=== PATIENT | female | born 1985 | race Caucasian/White ===

== ENCOUNTER 2019-05-08 10:40 | Observation (INO) ==
--- NOTE | 2019-05-08 11:45 | XRay Report ---
XR chest 1V portable CLINICAL HISTORY: Hypertension. COMPARISON STUDY: No previous studies for comparison. FINDINGS: Lung volumes are normal. There is no pneumothorax or pleural effusion. There is no evidence for pulmonary edema or pneumonia. Note is made of an apparent abnormal left lower thoracic paraspina l contour abnormality. Cardiac size is normal. There is a possible 7 mm left lower lung nodule. IMPRESSION: 1. Apparent abnormal left lower thoracic paraspinal chondral abnormality. This is of uncertain signif icance. A CT of the chest with contrast is recommended for further evaluation. 2. Possible 8 mm left lower lung nodule which can be assessed on chest CT. ACT 112: Negative or not required by law. Electronically signed by: Latrell Gorman M.D. 05/08/2019 11:43 AM
[2019-05-08 11:50] LABS: Basophils # (auto) 0.05 K/uL (0-0.2); Basophils % (auto) 0.4 %; Eosinophils # (auto) 0.39 K/uL (0-0.5); Eosinophils % (auto) 2.9 %; Hematocrit (blood only) 47.8 % (37-47); Hemoglobin 16.6 g/dL (12.0-16.0); Immature Granulocytes # (auto) 0.04 K/uL (0.00-0.02); Immature Granulocytes % (auto) 0.3 %; Lymphocytes # (auto) 2.13 K/uL (1.2-3.4); Lymphocytes % (auto) 15.8 %; Mean Corpuscular Hemoglobin 32.1 pg (25-34); Mean Corpuscular Hgb Conc 34.7 g/dL (32-36); Mean Corpuscular Volume 92.5 fL (80-100); Mean Platelet Volume 9.8 fL (7.4-10.4); Monocytes # (auto) 0.65 K/uL (0.11-0.59); Monocytes % (auto) 4.8 %; Neutrophils # (auto) 10.25 K/uL (1.4-6.5); Neutrophils % (auto) 75.8 %; Platelet Count 287 K/uL (130-400); RDW Standard Deviation 43.3 fL (36.4-46.3); Red Blood Count 5.17 M/uL (4.2-5.4); White Blood Count 13.51 K/uL (4.8-10.8)
[2019-05-08 11:54] LABS: Appearance Urine Cloudy (Clear); Bacteria Urine Automated Negative (Negative); Bilirubin Urine Negative (Negative); Blood Urine 3+ (Negative); Color Urine Orange; Epithelial Cell Urine Auto >30 /lpf (0-5); Glucose Urine UA Negative (Negative); Ketones Urine Negative (Negative); Leukocyte Esterase Urine 1+ (Negative); Nitrite Urine Negative (Negative); Protein Urine 3+ (Negative); RBC Urine Automated >30 /hpf (0-4); Specific Gravity Urine 1.017 (1.000-1.030); Urobilinogen Urine Negative (Negative); pH Urine 6.5 (4.5-7.5)
[2019-05-08 12:09] LABS: Alanine Aminotransferase 36 U/L (12-78); Albumin Level 3.8 gm/dl (3.4-5.0); Aspartate Aminotransferase 20 U/L (15-37); BUN Creatinine Ratio 13.9 (10-20); Blood Urea Nitrogen 13 mg/dl (7-18); Calcium 9.1 mg/dl (8.5-10.1); Carbon Dioxide 27 mmol/L (21-32); Chloride 103 mmol/L (98-107); Creatinine Clr Calc Pharmacy 78.3 ml/min; Est GFR (African American) 96.7; Est GFR (Non-African American) 83.4; Glucose 95 mg/dl (70-99); Lipase 104 U/L (73-393); Potassium 3.7 mmol/L (3.5-5.1); Sodium 137 mmol/L (136-145)
[2019-05-08 12:15] LABS: Albumin Globulin Ratio 0.9 (0.9-2); Alkaline Phosphatase 110 U/L (45-117); Bilirubin,Total 0.4 mg/dl (0.2-1); Globulin 4.3 gm/dl (2.5-4.0); Total Protein 8.1 gm/dl (6.4-8.2); Troponin I < 0.015 ng/ml (0-0.045)
[2019-05-08] MEDS ORDERED: LABETALOL HCL IV 5 MG/ML 20ML IV STA (12:51)
--- NOTE | 2019-05-08 12:59 | Ultrasound Report ---
RENAL ULTRASOUND CLINICAL HISTORY: Right flank pain. COMPARISON STUDY: None. TECHNIQUE: Sonography of the kidneys and the urinary bladder was performed. FINDINGS: Right kidney measures 10.5 cm in maximal dimension and the left measures 11 cm. There is no hydronephrosis. The renal pyramids are echogenic. Probable bilateral renal calculi are noted. These measure up to 8 mm. Renal echogenicity, size and cortical thickness are normal. Neither ureteral jet was identified. Note was made of a 5.8 x 4 x 4.1 cm septated cystic right ovarian lesion. There is co edwardo flow within the right ovary. IMPRESSION: 1. No hydronephrosis. 2. Probable bilateral nephrolithiasis. 2. 5.8 cm septated cystic right ovarian lesion. This is likely benign. However, a follow-up pelvic ul trasound in 6 weeks to ensure resolution is recommended. ACT 112: Negative or not required by law. Electronically signed by: Latrell Gorman M.D. 05/08/2019 12:58 PM
[2019-05-08] MEDS ORDERED: IOVERSOL 100ml IV PRN (13:37)
--- NOTE | 2019-05-08 13:52 | CT Scan Report ---
CT thoracic spine wo con CT DOSE: 488.64 mGy.cm HISTORY: Mass ? spine mass TECHNIQUE: Multiaxial CT images of the thoracic spine were performed and reformatted in the sagittal and coronal plane without the use of contrast. A dose lowering technique was utilized adhering to th e principles of ALARA. COMPARISON: Chest 05/08/2019 FINDINGS: Vertebral body stature is normal. Disc spaces are well preserved. Posterior elements are intact throughout. The left paraspinal density seen on routine imaging appear to represent a hiatal hernia. IMPRESSION: 1. Negative thoracic spine. 2. Chest film findings in the left paraspinal region appears to Represent a fixed hiatal hernia. ACT 112: Negative or not required by law. The above report was generated using voice recognition software. It may contain grammatical, syntax or spelling errors. Electronically signed by: Kareem Collazo M.D. 05/08/2019 1:51 PM
--- NOTE | 2019-05-08 14:00 | CT Scan Report ---
CT OF THE CHEST WITH IV CONTRAST CLINICAL HISTORY: Abnormal chest radiograph. Hypertension. COMPARISON STUDY: Chest radiograph performed earlier today. TECHNIQUE: Following IV administration of 94 mL of Optiray-320, helical axial images of the chest we re obtained. Sagittal and coronal reconstructions were viewed as well as maximal intensity projectio ns on an independent 3-D workstation. Automated exposure control was utilized for the study. A dose lowering technique was utilized adhering to the principles of ALARA. FINDINGS: No enlarged axillary, mediastinal or hilar lymph nodes are present. The size of the heart is normal. There is no pericardial effusion. Caliber of the thoracic aorta is normal. A small to mode rate hiatal hernia is noted. This accounts for the abnormal mediastinal contour on chest radiograph. Central airways are patent. There is no consolidation to suggest pneumonia. A 4 mm subpleural lingula r nodule on image 179 of 316 is likely benign. The central airways are patent. There is no pneumothor ax or pleural effusion. There are no suspicious osseous lesions. Imaged portions of the upper abdomen demonstrate marked fatty infiltration of the liver. Extensive bilateral renal calculi are noted, inc luding a 7 mm left renal pelvis calculus. There is no hydronephrosis. IMPRESSION: 1. Small to moderate size hiatal hernia which accounts for the mediastinal contour abnormality on chip st radiograph. 2. No acute findings within the chest. 3. Extensive bilateral nephrolithiasis. Several left renal pelvis calculi that measure up to 7 mm. No hydronephrosis. 4. Marked fatty infiltration of the liver. ACT 112: Negative or not required by law. Electronically signed by: Latrell Gorman M.D. 05/08/2019 1:59 PM
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
[2019-05-08] MEDS ORDERED: lisinopriL 10 MG TAB PO STA (14:21)
[2019-05-08] MEDS ORDERED: AMLODIPINE BESYLATE 5 MG TAB PO STA (14:21)
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
[2019-05-08] MEDS ORDERED: cefTRIAXone SODIUM 1,000 MG/50 ML BAG IV STA (15:09)
[2019-05-08] MEDS ORDERED: ACETAMINOPHEN 325 MG TAB PO PRN (16:01)
--- NOTE | 2019-05-08 23:46 | Electrocardiogram Report ---
Test Reason : Blood Pressure : / mmHG Vent. Rate : 071 BPM Atrial Rate : 071 BPM P-R Int : 146 ms QRS Dur : 080 ms QT Int : 464 ms P-R-T Axes : 050 057 080 degrees QTc Int : 505 ms Normal sinus rhythm T wave abnormality, consider anterior ischemia Prolonged QT Abnormal ECG When compared with ECG of 08-MAY-2019 11:11, T wave inversion now evident in Anterior leads Confirmed by Sherif Hill ([id number]) on 05/08/2019 11:46:21 PM Referred By: NO PCP Confirmed By:Sherif Hill
--- NOTE | 2019-05-08 23:46 | Electrocardiogram Report ---
Test Reason : Blood Pressure : / mmHG Vent. Rate : 080 BPM Atrial Rate : 080 BPM P-R Int : 136 ms QRS Dur : 080 ms QT Int : 426 ms P-R-T Axes : 036 038 068 degrees QTc Int : 491 ms Normal sinus rhythm Prolonged QT Abnormal ECG No previous ECGs available Confirmed by Sherif Hill ([id number]) on 05/08/2019 11:45:33 PM Referred By: NO PCP Confirmed By:Sherif Hill
[2019-05-09] MEDS ORDERED: LORazepam 0.5 MG TAB PO STA (00:01)
[2019-05-09] MEDS ORDERED: LABETALOL HCL IV 5 MG/ML 20ML IV STA (00:02)
[2019-05-09] MEDS ORDERED: HydrALAZINE HCL 20 MG/ML VIAL IV ONE (06:51)
[2019-05-09 07:12] LABS: Amphetamines+Metham, Urine Neg (Neg); Barbiturates, Urine Neg (Neg); Benzodiazepine, Urine Neg (Neg); Cocaine, Urine Neg (Neg); MDMA (Ecstacy), Urine Neg (Neg); Methadone, Urine Neg (Neg); Opiate, Urine Neg (Neg); Phencyclidine, Urine Neg (Neg)
[2019-05-09 07:29] LABS: Hematocrit (blood only) 47.2 % (37-47); Hemoglobin 16.1 g/dL (12.0-16.0); Mean Corpuscular Hemoglobin 31.9 pg (25-34); Mean Corpuscular Hgb Conc 34.1 g/dL (32-36); Mean Corpuscular Volume 93.7 fL (80-100); Mean Platelet Volume 9.7 fL (7.4-10.4); Platelet Count 289 K/uL (130-400); RDW Coefficient of Variation 13.2 % (11.5-14.5); RDW Standard Deviation 45.2 fL (36.4-46.3); Red Blood Count 5.04 M/uL (4.2-5.4)
--- NOTE | 2019-05-09 07:59 | Ultrasound Report ---
US duplex renal artery CLINICAL HISTORY: Severe hypertension. Assess renovascular cause COMPARISON STUDY: Renal ultrasound 05/08/2019. FINDINGS: The peak systolic velocity within the mid right renal artery is 81 cm/s and the proximal le ft renal artery is 142 cm/s. Of note, the proximal right renal artery was obscured by overlying bowel gas. Bilateral renal veins are patent. Normal resistive indices within the renal arcuate arteries. B ilateral nephrolithiasis is again noted. IMPRESSION: No evidence for renal artery stenosis. Bilateral nephrolithiasis. ACT 112: Negative or not required by law. Electronically signed by: Domingo Malagon M.D. 05/09/2019 7:58 AM
[2019-05-09 08:01] LABS: BUN Creatinine Ratio 13.5 (10-20); Calcium 9.7 mg/dl (8.5-10.1); Creatinine Clr Calc Pharmacy 59.6 ml/min; Est GFR (African American) 69.7; Est GFR (Non-African American) 60.1; Potassium 3.8 mmol/L (3.5-5.1)
[2019-05-09 08:57] LABS: Estimated Average Glucose 105 mg/dl; Hemoglobin A1C 5.3 % (4.5-5.6)
[2019-05-09] MEDS ORDERED: AMLODIPINE BESYLATE 5 MG TAB PO SCH (09:00)
[2019-05-09] MEDS ORDERED: lisinopriL 10 MG TAB PO SCH (09:00)
--- NOTE | 2019-05-09 10:45 | Hospitalist Progress Note ---
Date of Service May 09, 2019 Assessment & Plan (1) Hypertensive urgency: Hypertensive urgency No previous history of hypertension Work-up done for secondary hypertension: TSH within normal limit, Renal artery Dopplers shows no evidence of renin/aldosterone-level ordered, report pending (reference lab) Urine tox screen positive for marijuana only Patient reports of occasionally smoking marijuana, smokes half a pack of cigarettes a day No signs of endorgan damage. Patient started on lisinopril 10 mg daily, Norvasc 5 mg daily SBP improved to 160s, We will change/increase lisinopril to 20 mg twice daily(no function stable) Discontinue Norvasc, will keep on 1 antihypertensive agents for better compliance Patient will need close follow-up with family physician Echo ordered: Shows mild concentric left ventricular hypertrophy. Left ventricle normal in size, ejection fraction 55-60% Diastolic function is normal There is no significant valvular disease Prolonged QTC: Incidental finding in EKG QTC more than 500 Avoid medications that can worsen QTC prolongation UTI: UA shows positive bacteria, 1+ leukocyte Estrace She has been having increased urinary frequency bilateral flank pain, blood in urine On IV Rocephin Urine culture shows multiple organisms suggestive of normal talita Repeat clean-catch urine ordered We will change antibiotic to p.o. Keflex, avoid quinolones in the setting of QTC prolongation Patient will need total 5 days of treatment (2) Hematuria: Hematuria could be related to nephrolithiasis noted on CT abdomen, renal ultrasound also has urine tract infection Symptom has resolved, Will be discharged on p.o. Keflex for total 5 days of treatment (3) Tobacco abuse: Patient counseled extensively on need for smoking cessation (4) DVT prophylaxis: Ambulate Disposition: Will be discharged home today, hospital follow-up scheduled with family physician on Monday, May 13, 2019 Subjective Denies of any chest pain no shortness of breath, no headache no visual symptoms Feels comfortable Very anxious Worried about her high blood pressure, Does not have any lower extremity swelling, Urinary frequency has been unchanged, but if movement not the dysuria, no bilateral flank pain Review of Systems Genitourinary: + hematuria; no dysuria, no urinary frequency, no urinary hesitancy, no urinary urgency and no urinary incontinence Musculoskeletal: + back pain (Reports this is currently resolved); no joint pain, no swelling and no muscle weakness Physical Exam Constitutional: well developed, well nourished and + well hydrated; no acute distress and not ill appearing Eyes: PERRL, conjunctivae normal, anicteric sclerae ENMT: external ear and nose normal, oropharynx normal Neck: trachea midline, no thyromegaly normal visual inspection Respiratory: normal respiratory effort, lungs clear to auscultation does not use accessory muscles Auscultation: lungs clear to auscultation bilaterally Cardiovascular: RRR, no murmur, no edema Rate/Rhythm: regular rate Heart Sounds: normal S1 and normal S2 Vessels: no JVD Extremities: no pedal edema Chest (Breasts): Chest: normal inspection of chest Gastrointestinal (Abdomen): normal bowel sounds, soft, nontender, no hepatosplenomegaly Musculoskeletal: no cyanosis or clubbing, extremities motor strength 5/5 Neurologic: PERRL, EOMI, accommodation nl, no face palsy, no dysarthria normal touch/pain/proprioception Psychiatric: Orientation: alert and oriented x 3 Affect: + flat affect Genitourinary: no CVA tenderness Lymphatic: no cervical lymphadenopathy and no axillary lymphadenopathy Results & Data Vital Signs (Past 12 Hours) Vital Signs Temp Pulse Pulse Resp BP BP Pulse Ox 05/09/19 08:11 82 164/91 H 05/09/19 07:27 65 05/09/19 06:33 36.8 C 79 19 196/119 H 99 05/09/19 04:23 36.8 C 89 20 149/87 H 96 05/09/19 00:23 170/103 H 05/09/19 00:01 36.9 C 94 H 22 220/151 H 94 05/09/19 00:00 71 (1) Hematuria Hematuria type: unspecified type Qualified Code(s): R31.9 - Hematuria, unspecified
[2019-05-09] MEDS ORDERED: lisinopriL 10 MG TAB PO ONE (12:52)
[2019-05-09] MEDS ORDERED: cefTRIAXone SODIUM 1,000 MG in DEXTROSE 5% 50 ML IV SCH (16:00)
[2019-05-09] MEDS ORDERED: lisinopriL 20 MG TAB PO SCH ×2 (18:00→21:00)
[2019-05-09] MEDS ORDERED: cephALEXin 250 MG CAP PO ONE (18:00)
--- NOTE | 2019-05-09 18:22 | Discharge Summary ---
Date of Service May 09, 2019 Admission HPI Per Admitting Provider History of Present Illness 33-year-old woman with no known past medical history who presented to the ER for hematuria and back pain. Patient stated that she started having hematuria yesterday with low back pain noted on both sides. Denied any frequency, urgency, urinary incontinence, dysuria. Denied any fevers, chills, nausea, vomiting Denied any abdominal pain, constipation or diarrhea Reported similar episode last year when she had a UTI. On presentation to the ER, BP was noted to be elevated at 221/130 Patient denies any previous history of hypertension. Denies any oral contraceptive use. Smokes half pack per day since age 17. Smokes marijuana occasionally [does not remember last use] Denies illicit drug use. Uses alcohol occasionally about once a week [4 cans at a time] Primary Care Provider: Joe Espino MD Principal Diagnosis Hypertensive urgency/urine tract infection Discharge Exam Constitutional well developed, well nourished and + well hydrated; no acute distress and not ill appearing Eyes PERRL, conjunctivae normal, anicteric sclerae ENMT external ear and nose normal, oropharynx normal Neck trachea midline, no thyromegaly normal visual inspection Respiratory normal respiratory effort, lungs clear to auscultation does not use accessory muscles Auscultation: lungs clear to auscultation bilaterally Cardiovascular RRR, no murmur, no edema Rate/Rhythm: regular rate Heart Sounds: normal S1 and normal S2 Vessels: no JVD Extremities: no pedal edema Chest (Breasts) Chest: normal inspection of chest Gastrointestinal (Abdomen) normal bowel sounds, soft, nontender, no hepatosplenomegaly Musculoskeletal no cyanosis or clubbing, extremities motor strength 5/5 Neurologic PERRL, EOMI, accommodation nl, no face palsy, no dysarthria normal touch/pain/proprioception Psychiatric Orientation: alert and oriented x 3 Affect: + flat affect Genitourinary no CVA tenderness Lymphatic no cervical lymphadenopathy and no axillary lymphadenopathy Discharge Data Allergies Allergy/AdvReac Type Severity Reaction Status Date / Time No Known Allergies Allergy Unverified 05/08/19 12:04 Consultations 05/09/19 02:54 Consult Patient Rep / Service Excellence [Consult Patient Services] Routine Ordered Studies 05/08/19 11:24 US renal/blad retro comp Stat 05/08/19 13:12 CT chest w con Stat 05/08/19 13:14 CT thoracic spine wo con Stat 05/08/19 16:01 US duplex renal artery Urgent Hospital Course (1) Hypertensive urgency: Hypertensive urgency No previous history of hypertension Work-up done for secondary hypertension: TSH within normal limit, Renal artery Dopplers shows no evidence of renin/aldosterone-level ordered, report pending (reference lab) Urine tox screen positive for marijuana only Patient reports of occasionally smoking marijuana, smokes half a pack of cigarettes a day No signs of endorgan damage. Patient started on lisinopril 10 mg daily, Norvasc 5 mg daily SBP improved to 160s, We will change/increase lisinopril to 20 mg twice daily(no function stable) Discontinue Norvasc, will keep on 1 antihypertensive agents for better compliance Patient will need close follow-up with family physician Echo ordered: Shows mild concentric left ventricular hypertrophy. Left ventricle normal in size, ejection fraction 55-60% Diastolic function is normal There is no significant valvular disease Prolonged QTC: Incidental finding in EKG QTC more than 500 Avoid medications that can worsen QTC prolongation UTI: UA shows positive bacteria, 1+ leukocyte Estrace She has been having increased urinary frequency bilateral flank pain, blood in urine On IV Rocephin Urine culture shows multiple organisms suggestive of normal talita Repeat clean-catch urine ordered We will change antibiotic to p.o. Keflex, avoid quinolones in the setting of QTC prolongation Patient will need total 5 days of treatment (2) Hematuria: Hematuria could be related to nephrolithiasis noted on CT abdomen, renal ultrasound also has urine tract infection Symptom has resolved, Will be discharged on p.o. Keflex for total 5 days of treatment (3) Tobacco abuse: Patient counseled extensively on need for smoking cessation (4) DVT prophylaxis: Ambulate Disposition: Will be discharged home today, hospital follow-up scheduled with family physician on Monday, May 13, 2019 Total Time Total Time Spent Total Time Spent (In Minutes): Approximately 40 minutes Total Time Includes: Examination of the Patient, Discharge Planning and Medication Reconciliation Discharge Plan Discharge Items Patient Disposition: Home - Self-Care Reason For Visit: HEMATURIA Discharge Diagnosis: Hypertensive urgency, urine tract infection, Activity: Resume your previous activity Non-emergency contact: Primary Care Provider Call non-emergency contact if: you have any medication questions Follow-up/Referrals: Joe Espino MD [Primary Care Provider] - 05/13/19 11:05 am Diet: Heart Healthy and Low Sodium (2gm) Addtl Attending Provider Instructions: It is very important for you to quit smoking tobacco You were diagnosed with high blood pressure, needs adequate control to prevent future complications of stroke heart attack kidney failure * Please avoid high salty food usually canned and processed food, salted potato chips * Avoid medicines that have heart stimulants in them * This includes many cold and sinus decongestant pills, as well as sprays as well as diet pill * Please check a warning about hypertension on the label * Stimulants such as amphetamine or cocaine could be lethal for someone with hypertension * NEVER TAKE THESE * Limit how much caffeine you drink. Or switch to non-caffeinated beverages. * Stop smoking. If you are longtime smoker this can be hard. Enroll and stop smoking program to make it more likely that she will succeed. * Talk with the provider about ways to quit New medications: Lisinopril 20 mg take 1 tablet twice daily for high blood pressure Please take your medication daily as directed, Stopping blood pressure medication abruptly can cause rebound hypertension Follow-up with family physician Dr. Espino on 05/13/2019 at 11:05 AM REPEAT EKG ON 05/13/19 FOR PROLONG QTc Please return to ER with any episode of visual problem headache shortness of breath or chest pain chest heaviness, which could be a sign of extremely high blood pressure Pending Studies at Discharge: No Stand-Alone Forms: My [facility] Choose Digital, Smoking Cessation Medications and DC Order Prescriptions: New lisinopril 20 mg Tablet 20 mg PO BID 30 Days Qty: 60 RF: 3 cephalexin [Keflex] 250 mg capsule 250 mg PO Q6H 4 Days Qty: 16 RF: 0 Discharge Orders: Discharge Order (Routine); Ordered 05/09/19 Ordered By: Sheryl Mosley/Other Patient Handouts: Diet Low Salt Dc, ED Hypertension Conf Out Of Control Admission Data Admit Date/Time: 05/09/19 10:45 Attending Provider: Sheryl Adame Admit Provider: Neyda Bourne I. Primary Care Provider: Joe Espino
[2019-05-11 06:10] LABS: Marijuana Quant, GCMS Urine 48 ng/mL (<5)
[2019-05-12 21:41] LABS: Renin Activity 7.96 ng/mL/h (0.25-5.82)
== END 2019-05-09 19:30 | disposition home or self-care (01) | DRG 305 ==
LOC: 2W 10:40 → ED 10:40 → SUATTDRO 14:10 → 2W 15:46

== ENCOUNTER 2020-04-29 10:49 | Observation (INO) ==
[2020-04-29] MEDS ORDERED: ONDANSETRON INJ 2 MG/ML 2 ML VIAL IV STA (11:02)
[2020-04-29] MEDS ORDERED: KETOROLAC TROMETHAMINE 15 MG/ML VIAL IV STA (11:02)
[2020-04-29] MEDS ORDERED: SODIUM CHLORIDE 0.9% 1000ML 1,000 ML IV ONE (11:02)
[2020-04-29] MEDS ORDERED: MoRPHine SULFATE 4 MG/ML 1 ML CARP\\VIAL IV STA (11:02)
[2020-04-29 11:26] LABS: Basophils # (auto) 0.05 K/uL (0-0.2); Basophils % (auto) 0.4 %; Eosinophils # (auto) 0.19 K/uL (0-0.5); Eosinophils % (auto) 1.6 %; Hematocrit (blood only) 38.7 % (37-47); Hemoglobin 12.8 g/dL (12.0-16.0); Immature Granulocytes # (auto) 0.17 K/uL (0.00-0.02); Immature Granulocytes % (auto) 1.4 %; Lymphocytes # (auto) 2.09 K/uL (1.2-3.4); Lymphocytes % (auto) 17.3 %; Mean Corpuscular Hemoglobin 32.2 pg (25-34); Mean Corpuscular Hgb Conc 33.1 g/dL (32-36); Mean Corpuscular Volume 97.2 fL (80-100); Monocytes % (auto) 3.3 %; Neutrophils # (auto) 9.21 K/uL (1.4-6.5); Platelet Count 529 K/uL (130-400); RDW Coefficient of Variation 13.1 % (11.5-14.5); Red Blood Count 3.98 M/uL (4.2-5.4); White Blood Count 12.11 K/uL (4.8-10.8)
[2020-04-29 11:46] LABS: Albumin Level 2.8 gm/dl (3.4-5.0); BUN Creatinine Ratio 17.6 (10-20); Calcium 9.3 mg/dl (8.5-10.1); Est GFR (African American) 62.1; Est GFR (Non-African American) 53.6; Potassium 4.1 mmol/L (3.5-5.1)
[2020-04-29 11:49] LABS: Albumin Globulin Ratio 0.6 (0.9-2); Bilirubin,Total 0.2 mg/dl (0.2-1); Total Protein 7.8 gm/dl (6.4-8.2)
--- NOTE | 2020-04-29 12:17 | CT Scan Report ---
CT OF THE ABDOMEN AND PELVIS WITHOUT CONTRAST CLINICAL HISTORY: Right flank pain. COMPARISON STUDY: Renal ultrasound May 08, 2019. TECHNIQUE: Axial images of the abdomen and pelvis were obtained without IV contrast. Images were revi ewed in the axial, sagittal, and coronal planes. Automated exposure control was utilized for the erika dy. A dose lowering technique was utilized adhering to the principles of ALARA. FINDINGS: Lung bases are unremarkable. A moderate sized hiatal hernia is noted. There is hepatic stea tosis and mild hepatomegaly. Unenhanced images of the spleen, adrenal glands and pancreas are unremar kable. There is no evidence for a bowel obstruction. The appendix is normal. Intrauterine device is n oted. Ovaries are not enlarged. There is no lymphadenopathy. No acute fracture or suspicious lesion i s identified within the visualized skeletal structures. There are multiple bilateral renal calculi, the largest of which is a 6 mm calculus within the lower pole of the left kidney. There is mild left hydroureteronephrosis due to several calculi within the m id left ureter located at the level of the sacroiliac joint that measure up to 8 mm. No right uretera l calculi present. There is mild bilateral periureteral infiltration. There may also be wall thickeni ng of both ureters. There is mild bilateral perinephric infiltration. IMPRESSION: 1. Several mid left ureteral calculi that measure up to 8 mm. These result in mild left hydroureteron ephrosis. No right ureteral calculi. Bilateral nephrolithiasis. 2. Minimal bilateral perinephric and periureteral infiltration with possible wall thickening of the u reters. This raises the possibility of a superimposed infectious process. Findings could be correlate d with urinalysis. 3, Hepatic steatosis. 4. Moderate-sized hiatal hernia. 5. Intrauterine device in place. ACT 112: Negative or not required by law. Electronically signed by: Latrell Gorman M.D. 04/29/2020 12:15 PM
[2020-04-29 12:26] LABS: Appearance Urine Turbid (Clear); Bacteria Urine Automated 2+ (Negative); Bilirubin Urine Negative (Negative); Blood Urine 2+ (Negative); Color Urine Yellow; Epithelial Cell Urine Auto >30 /lpf (0-5); Glucose Urine UA Negative (Negative); Ketones Urine Negative (Negative); Leukocyte Esterase Urine 3+ (Negative); Nitrite Urine Positive (Negative); Protein Urine Trace (Negative); Specific Gravity Urine 1.012 (1.000-1.030); Urobilinogen Urine Negative (Negative); WBC Urine Automated >30 /hpf (0-5)
[2020-04-29] MEDS ORDERED: cefTRIAXone SODIUM 2,000 MG/70 ML BAG IV STA (13:16)
[2020-04-29] MEDS ORDERED: FAMOTIDINE 20MG IV PUSH 20 MG/5 ML SYR IV STA (13:48)
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
--- NOTE | 2020-04-29 15:55 | XRay Report ---
XR chest 2V PA/lateral CLINICAL HISTORY: Preoperative evaluation. COMPARISON STUDY: Chest CT May 08, 2019. FINDINGS: Lung volumes are normal. Lungs are clear. There is no pneumothorax or pleural effusion. Car diac size is normal. Mediastinal contours are normal. There is no evidence for pulmonary edema. Hiata l hernia is incidentally noted. IMPRESSION: No acute cardiopulmonary findings. ACT 112: Negative or not required by law. Electronically signed by: Latrell Gorman M.D. 04/29/2020 3:54 PM
--- NOTE | 2020-04-29 15:57 | XRay Report ---
XR KUB/Abdomen 1 view CLINICAL HISTORY: Left ureteral stone COMPARISON STUDY: CT scan dated 04/29/2020 FINDINGS: There is no pathologic bowel dilatation. There is an indwelling IUD. There are tiny bilater al renal calculi. There is a 6 mm calcification located just inferior to the left SI joint consistent with a left ureteral calculus. IMPRESSION: 1. Bilateral nephrolithiasis 2. 6 mm left ureteral calculus located just inferior to the left SI joint 3. Nonobstructive bowel gas pattern ACT 112: Negative or not required by law. Electronically signed by: Dayday Alas M.D. 04/29/2020 3:55 PM
[2020-04-29] MEDS ORDERED: MoRPHine SULFATE 2 MG/ML CARP IV PRN (16:05)
[2020-04-29] MEDS ORDERED: ONDANSETRON INJ 2 MG/ML 2 ML VIAL IV PRN (16:05)
[2020-04-29] MEDS ORDERED: MoRPHine SULFATE 4 MG/ML 1 ML CARP\\VIAL IV PRN (16:05)
[2020-04-29] MEDS ORDERED: oxyCODONE HCL IR 5 MG TAB (IMMEDIATE RELEASE) PO PRN ×2 (16:05)
--- NOTE | 2020-04-29 16:15 | Communication Note ---
Date of Service: April 29, [address] Russell's nurse practitioner over the phone. She had some concern that the patient was told that her heart would not tolerate anesthesia. After reviewing the patient's EKG, echocardiogram, and PMH it appears that the patient should be able to tolerate anesthesia for a mild urologic procedure.
[2020-04-29] MEDS ORDERED: INFLUENZA VIRUS QUAD VACCINE 0.5 ML SYR IM ONE (16:30)
[2020-04-29] MEDS ORDERED: INFLUENZA ADMINISTRATION CHARGE ONE (16:30)
[2020-04-29] MEDS: SODIUM CHLORIDE 0.9% 1000ML 1,000 ML IV SCH (16:39)
[2020-04-29] MEDS: lisinopril 20 MG TAB PO SCH (23:17)
[2020-04-30] MEDS: SODIUM CHLORIDE 0.9% 1000ML 1,000 ML IV SCH (02:57)
[2020-04-30 06:22] LABS: Basophils # (auto) 0.05 K/uL (0-0.2); Basophils % (auto) 0.6 %; Eosinophils # (auto) 0.19 K/uL (0-0.5); Eosinophils % (auto) 2.3 %; Hematocrit (blood only) 38.7 % (37-47); Hemoglobin 12.3 g/dL (12.0-16.0); Immature Granulocytes % (auto) 1.2 %; Lymphocytes # (auto) 2.01 K/uL (1.2-3.4); Lymphocytes % (auto) 24.1 %; Mean Corpuscular Hemoglobin 31.3 pg (25-34); Mean Corpuscular Hgb Conc 31.8 g/dL (32-36); Mean Corpuscular Volume 98.5 fL (80-100); Mean Platelet Volume 9.9 fL (7.4-10.4); Monocytes # (auto) 0.43 K/uL (0.11-0.59); Monocytes % (auto) 5.1 %; Neutrophils # (auto) 5.57 K/uL (1.4-6.5); Neutrophils % (auto) 66.7 %; Platelet Count 471 K/uL (130-400); RDW Coefficient of Variation 13.1 % (11.5-14.5); RDW Standard Deviation 47.5 fL (36.4-46.3); Red Blood Count 3.93 M/uL (4.2-5.4); White Blood Count 8.35 K/uL (4.8-10.8)
[2020-04-30 06:51] LABS: BUN Creatinine Ratio 12.6 (10-20); Calcium 9.3 mg/dl (8.5-10.1); Creatinine Clr Calc Pharmacy 52.1 ml/min; Est GFR (African American) 59.9; Est GFR (Non-African American) 51.7; Potassium 4.9 mmol/L (3.5-5.1)
--- NOTE | 2020-04-30 08:22 | Urology Progress Note ---
Date of Service April 30, 2020 Assessment & Plan (1) Calculus of left ureter: 34 year-old female patient, with past medical history of hypertension, admitted with right-sided flank pain, multiple obstructing left mid ureteral calculi, and suspected UTI. -Plan of care reviewed with Dr. Abernathy. -She continues to feel well, remains afebrile. -Despite having multiple obstructing left ureteral calculi, no reports of left- sided flank pain. -She is non-toxic on exam and requesting to go home. -Labs reviewed - white count improved with mild increase in creatinine (1.33). -Given increase in creatinine, did recommend surgical intervention today with cystoscopy and left stent placement, possible stone treatment. -Patient did express frustration, declined inpatient surgical intervention, and adamantly would like to go home as she prefers ESWL. -Discussed risks/benefits of all procedures in addition to risks of no stone treatment including sepsis. She verbalizes understanding and accepts these risks. -Urine culture pending, will convert to oral Ciprofloxacin on discharge and await final. -Encouraged hydration. Will start Tamsulosin. Use PRN Percocet for pain. Side effects of medications discussed. -Expected clinical course reviewed with patient in detail and reviewed strict ER criteria. -Will plan for outpatient follow-up with urology service tomorrow to discuss definitive stone management. (2) Right flank pain: -Patient with severe right flank pain last week and episode x1 yesterday. -No further reports of right flank pain since admission. -Question stone passage versus imposing infection. -As above, await culture and home with PO antibiotics. -Strain all urine. (3) UTI (urinary tract infection): -As above, urinalysis indicative of infection, follow urine cultures. (4) Hypertension: Blood pressure currently stable. Will continue home Lisinopril at this time. Admission and Anticipated Discharge Date Admission Date: April 29, 2020 Subjective Patient examined this morning. She is visibly upset during exam. Reports she is frustrated overall regarding her plan of care. She does not want to stay in the hospital anymore. It is her son's birthday, and she wants to go home. Patient is feeling well overall. Denies flank or abdominal pain. Denies nausea or vomiting. Denies fevers or chills. Denies dysuria, hematuria, frequency, or urgency. Has been NPO since last evening, IV fluids maintained. Chart review: Afebrile Wbc 8.35 Hgb 12.3 Creatine 1.33 (1.29) Urine culture pending. Outpatient urine culture 04/20 >100,000 cfu E.Coli, pansensitive. Treated with Cipro as outpatient. KUB 04/29 - IMPRESSION: 1. Bilateral nephrolithiasis 2. 6 mm left ureteral calculus located just inferior to the left SI joint 3. Nonobstructive bowel gas pattern Denies additional urologic concerns today. Review of Systems Constitutional: as per Subjective / HPI; no fever and no chills Respiratory: no cough and no dyspnea Gastrointestinal: as per Subjective / HPI; no nausea and no vomiting Genitourinary: as per Subjective / HPI; no dysuria and no hematuria Neurologic: no dizziness Physical Exam Constitutional: well developed, well nourished and comfortable; no acute distress and not ill appearing Non-toxic in appearance. Respiratory: normal respiratory effort and able to speak in complete sentences; no respiratory distress and no audible wheezes Gastrointestinal (Abdomen): Inspection/Auscultation: abdomen normal to inspection; abdomen not distended Percussion/Palpation: abdomen soft; abdomen nontender and no guarding Psychiatric: Orientation: alert, oriented x 3 and cooperative Affect: euthymic affect Genitourinary: no CVA tenderness Results & Data ([facility]) Vital Signs (Past 12 Hours) Vital Signs Temp Pulse Resp BP Pulse Ox 04/30/20 07:14 36.6 C 73 16 107/73 94 04/29/20 23:06 36.8 C 59 L 14 110/69 97 PG Care Time/CCT Total # of Minutes Spent Total Time Spent with Patient: Total time spent is greater than 50% in coordination of care (as documented) at patient's floor/unit and/or counseling patient: Coding Level of Care Code 89551 Subseq Hosp Care Lvl 2 Diagnoses Calculus of left ureter N20.1 Right flank pain R10.9 UTI (urinary tract infection) N39.0; R31.9 Hematuria presence: with hematuria Urinary tract infection type: site unspecified Hypertension I10 (1) UTI (urinary tract infection) Hematuria presence: with hematuria Urinary tract infection type: site unspecified Qualified Code(s): N39.0 - Urinary tract infection, site not specified; R31.9 - Hematuria, unspecified
[2020-04-30] MEDS: lisinopril 20 MG TAB PO SCH (09:23)
--- NOTE | 2020-04-30 13:17 | Discharge Summary ---
Date of Service April 30, 2020 Admission HPI Per Admitting Provider 34 year-old female patient, with past medical history of hypertension, presented today to the emergency room with complaints of severe right-sided flank pain that began around 10:00 this morning. Flank pain is located in mid right back without radiation. Denies history of left-sided flank pain. Patient reports that she was seen by her primary care provider last week with complaints of feeling ill, right-sided flank pain, nausea/vomiting, and UTI symptoms. Does report episode of gross hematuria last week. A urine sample was provided at that time and she was started on a 5 day course of Ciprofloxacin. She finished her Ciprofloxacin this past Monday. She reports after completing antibiotic therapy, she felt "great". She reports she felt back to her baseline Monday and Monday until pain started again today when she presented to the emergency room. Past medical and surgical history reviewed. Patient states one year ago she had similar episode of UTI and diagnosed with hypertensive urgency. She was told at that time she did have kidney stones but they would be small enough to pass. No prior known history of stones. She reports she does not have prior surgical history but was told by her PCP to be cautious of anesthesia due to EKG finding in the past (patient unsure of what finding). No history of stone passage. No family history of stones. Urology consulted for admission due to UTI with multiple obstructing left mid ureteral calculi and urine suspicious for UTI. Chart review: Afebrile Wbc 12.11 Hgb 12.8 Creatinine 1.29 (last documented creatinine in Apr 2019 1.18) Urinalysis turbid urine, nitrate positive, +3 leukocytes, >30 wbc, 5-10 rbc, +2 bacteria. Urine negative. Urine culture pending. Patient did receive IV Rocephin 2 g around 2:00 this afternoon in ER. Imaging: CT abd/pelvis without contrast - IMPRESSION: 1. Several mid left ureteral calculi that measure up to 8 mm. These result in mild left hydroureteronephrosis. No right ureteral calculi. Bilateral nephroli thiasis. 2. Minimal bilateral perinephric and periureteral infiltration with possible wall thickening of the ureters. This raises the possibility of a superimposed infectious process. Findings could be correlated with urinalysis. 3. Hepatic steatosis. 4. Moderate-sized hiatal hernia. 5. Intrauterine device in place. Patient seen and examined at bedside. She is comfortable and non-toxic in appearance. She reports her severe right-sided flank pain has resolved, now experiencing a dull "twinge". Denies history of or current left-sided flank pain. She denies fevers or chills. She reports she did not have fever or chills last week with UTI symptoms. Currently denies nausea or vomiting but did mention last week she had multiple episodes of both. Currently denies dysuria or hematuria. Denies urinary frequency/urgency. She feels like she empties her bladder well without difficulty. She has no reported abnormal urinary symptoms at present. She does note that she has history of UTIs (no prior history of known pyelonephritis), stating she gets UTIs on average every 6 months. She states she never did follow with urology in the past for recurrent UTIs. She last ate this morning around 0945 am and last drank water around 1100 this am. Denies additional urologic concerns today. Principal Diagnosis Right flank pain, left ureteral calculi, suspected UTI Discharge Exam Constitutional well developed and well nourished; no acute distress and not ill appearing Non-toxic in appearance Respiratory normal respiratory effort and able to speak in complete sentences; no respiratory distress and no audible wheezes Gastrointestinal (Abdomen) Inspection/Auscultation: abdomen normal to inspection; abdomen not distended Percussion/Palpation: abdomen soft; abdomen nontender and no guarding Psychiatric Orientation: alert, oriented x 3 and cooperative Affect: euthymic affect Genitourinary no CVA tenderness Discharge Data Allergies Allergy/AdvReac Type Severity Reaction Status Date / Time No Known Allergies Allergy Unverified 05/08/19 12:04 Consultations 04/29/20 13:48 ED Decision to Admit Stat Procedures Performed Operation Date: 04/30/20 11:50 <No data on this case meets the specified criteria> Ordered Studies 04/29/20 11:02 CT abd pelvis wo con Stat Hospital Course (1) Right flank pain: (2) Calculus of left ureter: (3) UTI (urinary tract infection): Patient admitted 04/29/20-04/30/20 secondary to episode of severe right flank pain. She was found to have multiple left-sided ureteral calculi noted on CT with no reports of left flank pain. CT findings also notable for wall thickening of the bilateral ureters, question passed right-sided stone versus imposing infection. Urinalysis was also questionable for UTI, culture pending. Patient was made NPO during most of hospital stay. IV hydration and IV antibiotics were provided. She remained afebrile without flank pain or UTI symptoms during admission. On morning of discharge, her white count had returned to normal with mild increase in creatinine (1.33). Due to mild increase in creatinine, it was recommended proceeding with cystoscopy and left stent placement. Patient was frustrated with this plan as she adamantly wanted to return home and not undergo inpatient surgical intervention. She declined surgical intervention after risks were discussed in detail including sepsis and WILI. As she was feeling well without fevers, she was discharged home with PO antibiotic therapy while awaiting culture results. An appointment outpatient with urology service was arranged for tomorrow 04/30 to discuss definitive stone management. Patient strongly preferred pursing outpatient ESWL, this will be arranged. Reviewed in significant detail signs/symptoms that would warrant return to the ER. She was in agreement with above plan, verbalized understanding, and was discharged home in stable condition. Total Time Total Time Spent Total Time Spent (In Minutes): 30 mins Total Time Includes: Examination of the Patient, Discharge Planning and Communication With Other Providers Discharge Plan Discharge Items Patient Disposition: Home - Self-Care Reason For Visit: LEFT URETERAL CALCULI, UTI Discharge Diagnosis: Left ureteral calculi, right flank pain Condition on Discharge: Good Activity: Resume your previous activity Lifting: Gradually increase as tolerated Bathing: No limitations Sexual Activity: When tolerated Exercise/Sports: Gradually increase as tolerated Driving/Machine Use: Do not drive while on narcotic pain meidcation Non-emergency contact: Urologist Call non-emergency contact if: your symptoms worsen, your pain is not controlled and your temperature is above 101 Follow-up/Referrals: Joe Espino MD [Primary Care Provider] - Mindi Callejas CRNP [Nurse Practitioner] - 05/01/20 11:30 am Diet: Lactose Intolerant Addtl Attending Provider Instructions: Please take all medications as prescribed and keep all follow-ups as scheduled. You have been prescribed pain medications to take as needed, Percocet. Do not use NSAIDs as we have you hold these prior to ESWL. Do not drive while on narcotic pain medications and monitor for drowsiness/dizziness. You also have been prescribed Tamsulosin (take at bedtime) and monitor for dizziness. We have started you on an antibiotic, Ciprofloxacin, start twice daily as directed. Please call our office at [phone] with any questions, concerns or need to reschedule appointments for any reason. We are happy to assist you. You were diagnosed with left mid ureteral stones. We are awaiting your urine culture to determine if you have a urinary tract infection. You have elected to be discharged today for outpatient management of stones. We have discussed ESWL as your preferred stone treatment method. During this time: - Your urine may be cloudy or slightly bloody. - You may have some pain. Okay to take Tylenol or pain medication as prescribed. - Strain your urine to collect the stone if you do pass it. - Please bring specimen to your follow-up appointment to be studied in the lab, if able. - Recommend hydration as this will help with stone passage. When to call [facility] at [phone]: Fever of 101F or higher Heavy bleeding Pain that is not controlled with medicine Uncontrolled vomiting Problems urinating or inability to urinate Pending Studies at Discharge: No Stand-Alone Forms: My [facility] [employer], Smoking Cessation Medications and DC Order Prescriptions: New tamsulosin 0.4 mg capsule 0.4 mg PO QPM 30 Days Qty: 30 RF: 0 ciprofloxacin HCl 250 mg tablet 250 mg PO BID 7 Days Qty: 14 RF: 0 oxycodone-acetaminophen [Percocet] 5-325 mg tablet 1 tab PO TID PRN (Reason: pain) Qty: 7 RF: 0 Continued lisinopril 20 mg Tablet 20 mg PO BID 30 Days Qty: 60 RF: 3 Discharge Orders: Discharge Order (Routine); Ordered 04/30/20 Ordered By: Manuela Mosley/Other Patient Handouts: ED Kidney Stone w/ Colic Admission Data Admit Date/Time: 04/29/20 14:37 Attending Provider: Tab Russell Admit Provider: Tab Russell Primary Care Provider: Joe Espino Other Providers: Tab Russell Other Interventions: Discharge Summary Assessment (RN) Last Done: 04/30/20 10:08 Coding Level of Care Code D/C Day Management <30 mins Diagnoses Right flank pain R10.9 Calculus of left ureter N20.1 UTI (urinary tract infection) N39.0; R31.9 Hematuria presence: with hematuria Urinary tract infection type: site unspecified
[2020-04-30] MEDS ORDERED: cefTRIAXone SODIUM 1,000 MG in DEXTROSE 5% 50 ML IV SCH (14:00)
--- NOTE | 2020-05-01 14:39 | Electrocardiogram Report ---
Test Reason : Blood Pressure : / mmHG Vent. Rate : 067 BPM Atrial Rate : 067 BPM P-R Int : 154 ms QRS Dur : 078 ms QT Int : 412 ms P-R-T Axes : 053 075 058 degrees QTc Int : 435 ms Sinus rhythm with marked sinus arrhythmia Otherwise normal ECG When compared with ECG of 08-MAY-2019 16:12, QRS voltage has decreased T wave inversion less evident in Anterior leads Confirmed by Tab Call ([id number]) on 05/01/2020 2:39:12 PM Referred By: REFERRED SELF Confirmed By:Tab Call
== END 2020-04-30 10:30 | disposition home or self-care (01) ==
LOC: ED 10:49 → INTOOBSV 14:37 → 3N 14:37